=== PATIENT | male | born 1970 ===

== ENCOUNTER 2024-04-05 17:40 | Outpatient (REF) | payer BC, SELFPAY ==
[2024-04-05 19:52] LABS: Abs Immature Grans 0.01 10^3/uL (0.0-0.06); Absolute Basophil Count 0.04 10^3/uL (0.0-0.2); Absolute Lymphocyte Count 1.96 10^3/uL (1.2-3.4); Absolute Monocyte Count 0.48 10^3/uL (0.1-0.8); Absolute Neutrophil Count 2.42 10^3/uL (1.2-6.7); Basophils % 0.8 %; HCT 48.4 % (40.0-50.0); HGB 16.1 g/dL (13.5-17.5); Immature Grans % 0.2 %; Lymphocytes % 39.1 %; MCHC 33.3 % (32.0-36.0); MCV 87 fL (80-95); MPV 10.3 fL (8.0-11.0); Monocytes % 9.6 %; Neutrophils % 48.3 %; Platelet Count 243 10^3/uL (130-400); RBC 5.55 10^6/uL (4.36-5.78); RDW 12.7 % (11.8-14.1); RDW-SD 40.7 fL; WBC 5.01 10^3/uL (4.4-10.8)
[2024-04-05 20:57] LABS: ALT 27 U/L (16-63); AST 15 U/L (15-37); Albumin 4.5 g/dL (3.4-5.0); Alkaline Phosphatase 61 U/L (46-116); Anion Gap 8.4 mmol/L (3-11); BUN 15 mg/dL (7-18); Bilirubin, Total 0.32 mg/dL (0.2-1.0); CO2 27.6 mmol/L (21.0-32.0); Calcium 9.4 mg/dL (8.5-10.1); Calculated LDL 291 mg/dL (<100); Chloride 104 mmol/L (98-107); Cholesterol 388 mg/dL (<200); Glucose 107 mg/dL (74-106); HDL Cholesterol 47 mg/dL (40-60); Potassium 4.6 mmol/L (3.5-5.1); Sodium 140 mmol/L (136-145); TSH 2.51 uIU/mL (0.36-3.74); Total Protein 7.6 g/dL (6.4-8.2); Triglyceride 250 mg/dL (<150)
[2024-04-08 11:14] LABS: PSA, Screening 0.8 ng/mL (<=3.5)
== END 2024-04-05 17:41 | disposition home or self-care (01) ==
LOC: NCHCN 17:40
PROVIDERS: Visit Provider Family Medicine
DX: Z13.29 Encounter for screening for other suspected endocrine disorder (principal); Z13.1 Encounter for screening for diabetes mellitus; Z00.00 Encounter for general adult medical examination without abnormal findings; Z13.220 Encounter for screening for lipoid disorders; Z12.5 Encounter for screening for malignant neoplasm of prostate
CPT/HCPCS: 80053; 80061; 84153; 83036; 84443; 85025